=== PATIENT | female | born 1985 | race Caucasian/White ===

== ENCOUNTER 2016-05-10 19:56 | Outpatient (CLI) | payer OTHER ==
[~2016-05-10 19:56] MED LIST: ATIVAN0.5 MG PO; BACTRIM,SEPT1 TABLET PO; BENADRYL25 MG PO; CIPRO500 MG PO; CITRATE OF MAG296 ML PO; COLACE100 MG PO; FIORICET 50-301 EACH PO; IBUPROFEN600 MG PO; KEFLEX500 MG PO; KENALOG,ARISTOC80 GM TP; MACROBID100 MG PO; MEDROL DOSEPAK4 MG PO; MIRALAX17 GM PO; NAPROSYN500 MG PO; NAPROXEN500 MG PO; NOHOMEMEDS; PEN-VEE K,VEET500 MG PO; PERCOCET 5/31 TABLET PO; PRENATAL COMPL1 EACH PO; PRILOSEC40 MG PO; PYRIDIUM200 MG PO; SERTRALINE HCL50 MG PO; TRAZODONE HCL50 MG PO; ULTRAM50 MG PO; ZANTAC150 MG PO; ZITHROMAX250 MG PO; ZOFRAN ODT4 MG PO; ZOFRAN4 MG PO; ZOLOFT50 MG PO
[2016-05-10 20:25] VITALS: BP 121/66
[2016-05-10 21:43] LABS: ADD MIUA? YES; BILIRUBIN NEGATIVE; BLOOD NEGATIVE; COLOR YELLOW ((YELLOW)); GLUCOSE (STRIP) NEGATIVE; KETONES NEGATIVE; LEUKOCYTES TRACE; NITRITE NEGATIVE; PH, URINE 6.5 (5-8); PROTEIN (STRIP) NEGATIVE; SPECIFIC GRAVITY 1.017 (1.000-1.030); UROBILINOGEN 0.2 MG/DL (0.2-1.0)
[2016-05-10 22:23] LABS: BACTERIA 1+ /HPF; EPITHELIAL CELLS 1+ /HPF; MUCUS 1+ /LPF; RED BLOOD CELLS 0-5 /HPF (0-5); UCUL ADDED? NO; WHITE BLOOD CELLS 0-5 /HPF (0-5)
== END 2016-05-10 21:40 | disposition home or self-care (01) ==
LOC: LDRP-OP 19:56 → 2WEST 19:57 → LDRP-OP 08-04 20:47
PROVIDERS: Nurse Practitioner
DX: O47.03 False labor before 37 completed weeks of gestation, third trimester (principal); O99.89 Other specified diseases and conditions complicating pregnancy, childbirth and the puerperium; Z3A.32 32 weeks gestation of pregnancy
CPT/HCPCS: 59025; 81003; G0378

== ENCOUNTER 2016-05-15 21:04 | Outpatient (CLI) | payer OTHER ==
[~2016-05-15] VITALS: Ht 167.6 cm; Wt 66.7 kg
[2016-05-15 21:23] VITALS: BP 114/63
[2016-05-15 22:54] LABS: BILIRUBIN NEGATIVE; BLOOD NEGATIVE; COLOR YELLOW ((YELLOW)); GLUCOSE (STRIP) 50; KETONES NEGATIVE; LEUKOCYTES NEGATIVE; NITRITE NEGATIVE; PROTEIN (STRIP) NEGATIVE; SPECIFIC GRAVITY 1.017 (1.000-1.030); UROBILINOGEN 0.2 MG/DL (0.2-1.0)
[2016-05-15 23:01] LABS: ADD MIUA? NO; UCUL ADDED? NO
[2016-05-15 23:07] LABS: AMPHETAMINES QUANT VALUE 0 NG/ML; BARBITUATES QUANT VALUE 0 NG/ML; BENZODIAZEPINES QUANT VALUE 0 NG/ML; BENZODIAZEPINES, URINE SCREEN Negative (200 ng/mL); MARIJUANA QUANT VALUE 0 NG/ML; OPIATES QUANTITATIVE VALUE 0 NG/ML; PHENCYCLIDINE QUANT VALUE 0 NG/ML
[2016-05-15 23:55] LABS: CANDIDA DNA PROBE NEGATIVE; GARDNERELLA DNA PROBE POSITIVE; INTERNAL CONTROL VALID? YES
[2016-05-17 12:16] LABS: CHLAMYDIA TRACHOMATIS NEGATIVE; NEISSERIA GONORRHOEAE NEGATIVE
== END 2016-05-15 23:30 | disposition home or self-care (01) ==
LOC: LDRP-OP 21:04 → 2WEST 21:05 → LDRP-OP 08-04 21:57
PROVIDERS: Midwife
DX: O26.853 Spotting complicating pregnancy, third trimester (principal); Z3A.32 32 weeks gestation of pregnancy; O23.593 Infection of other part of genital tract in pregnancy, third trimester
CPT/HCPCS: 59025; 80306 90; 81003; 87480; 87491; 87510; 87591; 87660; G0378

== ENCOUNTER 2016-06-26 11:58 | Outpatient (CLI) | payer OTHER ==
[2016-06-26 12:36] VITALS: BP 130/68
== END 2016-06-26 13:06 | disposition home or self-care (01) ==
LOC: LDRP-OP 11:58 → 2WEST 11:59
DX: O26.899 Other specified pregnancy related conditions, unspecified trimester (principal); Z3A.00 Weeks of gestation of pregnancy not specified
CPT/HCPCS: 59025; G0378

== ENCOUNTER 2016-07-05 11:19 | Emergency (ER) | payer OTHER ==
[~2016-07-05] VITALS: Ht 168.9 cm; Wt 76.5 kg
[2016-07-05] MEDS ORDERED: MOTRIN600 MG PO (12:52)
[2016-07-05] MEDS ORDERED: COLACE100 MG PO (12:52)
[2016-07-05] MEDS ORDERED: OXYCONTIN15 MG PO (12:53)
[2016-07-05 13:32] LABS: EOSINOPHIL (%) 6.1 % (0-5); EOSINOPHIL COUNT 0.4 K/uL (0-0.3); HEMATOCRIT 30.7 % (36.0-46.0); IMMATURE GRANULOCYTE (%) 0.9 % (0.0-0.7); IMMATURE GRANULOCYTE COUNT 0.1 K/uL; INSTRUMENT ABS NEUTROPHIL CT 3.8 K/uL; LYMPHOCYTE COUNT 1.5 K/uL (1.0-2.8); MCH 30.7 PG (29.0-34.0); MCHC 32.9 G/DL (30.0-36.0); MCV 93.3 FL (83-99); MEAN PLAT.VOLUME 9.3 uM^3 (9.5-12.4); MONOCYTE COUNT 0.6 K/uL (0-0.8); NEUTROPHIL (%) 59.3 % (45-76); NEUTROPHIL COUNT 3.8 K/uL (1.8-6.4); PLATELET COUNT 315 K/uL (156-360); RBC DIS.WIDTH-CV 11.9 % (11.8-14.6); RBC DIS.WIDTH-SD 40.6 % (39-53); RED BLOOD COUNT 3.29 M/uL (3.80-5.20); WHITE BLOOD COUNT 6.4 K/uL (4.1-10.2)
[2016-07-05 13:52] LABS: ANION GAP 8 MEQ/L (2-14); CHLORIDE 104 MEQ/L (99-109); SAMPLE HEMOLYSIS CHECK 0; SAMPLE ICTERIC CHECK 0; SAMPLE LIPEMIA CHECK 0; SODIUM 141 MEQ/L (136-147)
[2016-07-05 13:57] LABS: GFR ESTIMATE (CALCULATED) > 59 mL/min/; GLUCOSE 82 mg/dL (70-99); UREA NITROGEN (BUN) 17 mg/dL (9-23)
[2016-07-05] MEDS ORDERED: ATARAX,VISTARIL25 MG PO (15:22)
[2016-07-05 15:40] VITALS: BP 129/71
[2016-07-05 16:00] LABS: ADD MIUA? YES; BILIRUBIN NEGATIVE; BLOOD LARGE; COLOR STRAW ((YELLOW)); GLUCOSE (STRIP) NEGATIVE; KETONES NEGATIVE; LEUKOCYTES NEGATIVE; NITRITE NEGATIVE; PROTEIN (STRIP) NEGATIVE; SPECIFIC GRAVITY 1.006 (1.000-1.030); UROBILINOGEN 0.2 MG/DL (0.2-1.0)
[2016-07-05 16:50] LABS: BACTERIA RARE /HPF; EPITHELIAL CELLS 1+ /HPF; MUCUS TRACE /LPF; RED BLOOD CELLS 0-5 /HPF (0-5); UCUL ADDED? NO; WHITE BLOOD CELLS 0-5 /HPF (0-5)
== END 2016-07-05 15:40 | disposition home or self-care (01) ==
LOC: EME 11:19
DX: O90.89 Other complications of the puerperium, not elsewhere classified (principal); R60.0 Localized edema; O99.345 Other mental disorders complicating the puerperium; F53 Mental and behavioral disorders associated with the puerperium, not elsewhere classified; Z98.890 Other specified postprocedural states; O99.63 Diseases of the digestive system complicating the puerperium; K59.00 Constipation, unspecified; Z73.3 Stress, not elsewhere classified; Z87.891 Personal history of nicotine dependence
CPT/HCPCS: 71020; 80048; 81003; 83880; 85025; 90839; 99281; 99285; Q0177

== ENCOUNTER 2017-07-10 16:10 | Emergency (ER) | payer OTHER ==
[~2017-07-10] VITALS: Ht 167.6 cm; Wt 64.6 kg
[~2017-07-10 16:10] MED LIST changes: +ATARAX,VISTARIL25 MG PO; +MOTRIN600 MG PO; +OXYCONTIN15 MG PO
[2017-07-10 17:34] LABS: BASOPHIL (%) 0.2 % (0-1); EOSINOPHIL (%) 0.7 % (0-5); EOSINOPHIL COUNT 0.1 K/uL (0-0.3); HEMATOCRIT 37.7 % (36.0-46.0); HEMOGLOBIN 12.8 G/DL (11.9-15.5); IMMATURE GRANULOCYTE (%) 0.2 % (0.0-0.7); LYMPHOCYTE (%) 28.2 % (15-42); LYMPHOCYTE COUNT 2.4 K/uL (1.0-2.8); MCH 30.5 PG (29.0-34.0); MCV 89.8 FL (83-99); MONOCYTE (%) 7.8 % (3-12); MONOCYTE COUNT 0.7 K/uL (0-0.8); NEUTROPHIL (%) 62.9 % (45-76); NEUTROPHIL COUNT 5.3 K/uL (1.8-6.4); PLATELET COUNT 253 K/uL (156-360); RBC DIS.WIDTH-CV 12.1 % (11.8-14.6); WHITE BLOOD COUNT 8.5 K/uL (4.1-10.2)
[2017-07-10 17:44] LABS: CHLORIDE 107 mEq/L (99-109); POTASSIUM 3.8 mEq/L (3.7-5.4); SODIUM 139 mEq/L (136-147)
[2017-07-10 17:46] LABS: GLUCOSE 88 mg/dL (70-99)
[2017-07-10 17:50] LABS: GFR ESTIMATE (CALCULATED) > 59 mL/min/
[2017-07-10 17:51] LABS: UREA NITROGEN (BUN) 11 mg/dL (9-23)
[2017-07-10 17:58] LABS: QUANTITATIVE HCG 7900.9 MIU/ML
[2017-07-10 18:43] LABS: APPEARANCE CLOUDY ((CLEAR)); BILIRUBIN NEGATIVE; BLOOD NEGATIVE; COLOR YELLOW ((YELLOW)); GLUCOSE (STRIP) NEGATIVE; KETONES 5; LEUKOCYTES SMALL; NITRITE POSITIVE; PROTEIN (STRIP) NEGATIVE; SPECIFIC GRAVITY 1.026 (1.000-1.030)
[2017-07-10 18:51] LABS: BACTERIA RARE /HPF; EPITHELIAL CELLS 1+ /HPF; MUCUS TRACE /LPF; RED BLOOD CELLS 0-5 /HPF (0-5); UCUL ADDED? NO; WHITE BLOOD CELLS 0-5 /HPF (0-5)
[2017-07-10] MEDS ORDERED: PRENATAL ONE T1 EACH PO (20:26)
[2017-07-10] MEDS ORDERED: ZOFRAN4 MG PO (20:26)
[2017-07-10 20:51] VITALS: BP 129/83
== END 2017-07-10 20:52 | disposition home or self-care (01) ==
LOC: EME 16:10
PROVIDERS: Physician Assistant
DX: O20.0 Threatened abortion (principal); Z3A.01 Less than 8 weeks gestation of pregnancy; O99.343 Other mental disorders complicating pregnancy, third trimester; F41.9 Anxiety disorder, unspecified; Z87.440 Personal history of urinary (tract) infections; Z87.891 Personal history of nicotine dependence; Z88.5 Allergy status to narcotic agent
CPT/HCPCS: 76801; 80048; 81003; 84702; 85025; 86900; 86901; 99281; 99283